=== PATIENT | male | born 1955 | race Caucasian/White ===

== ENCOUNTER 2018-09-30 18:46 | Inpatient (IN) | payer MEDICARE, MEDICAID ==
[~2018-09-30] VITALS: Ht 162.6 cm; Wt 60.6 kg
[2018-09-30] MEDS ORDERED: SOD CHLORIDE 0.9% 500 ML IV STA (20:38)
[2018-09-30] MEDS ORDERED: ONDANSETRON 4 MG INJ IV PRN ×2 (21:00→23:00)
[2018-09-30] MEDS ORDERED: ACETAMINOPHEN 325 MG TAB PO PRN (21:00)
--- NOTE | 2018-09-30 22:46 | ERD ---
ER Documentation Chief Complaint Chief Complaint diagnosed w/CHF in [place] & then was referred here x further eval(cap?) HPI 63-year-old male who was just discharged from a 2-day hospital stay at [place]. He states that he was diagnosed with pneumonia and possible CHF. The patient has been receiving levofloxacin and received a dose today around noon. He states that he was discharged and told to come to the emergency room. Patient still describes cough, generalized malaise, weight loss. No hemoptysis. No chest pressure. ROS All systems reviewed and are negative except as per history of present illness. Medications Home Meds No Active Prescriptions or Reported Meds Allergies Allergies: Coded Allergies: No Known Allergy (Unverified , 09/30/18) PMhx/Soc Medical and Surgical Hx: pt denies Surgical Hx History of Surgery: No Anesthesia Reaction: No Hx Neurological Disorder: No Hx Cardiac Disorders: Yes (CHF) Hx Psychiatric Problems: No Hx Miscellaneous Medical Probl: No Hx Alcohol Use: No Hx Substance Use: No Hx Tobacco Use: No Smoking Status: Never smoker FmHx Family History: No diabetes Physical Exam Vitals Vital Signs Date Temp Pulse Resp B/P (MAP) Pulse Ox O2 O2 Flow FiO2 Time Delivery Rate 09/30/18 98.6 98 20 148/95 97 18:52 (112) Physical Exam General: Cachectic male, no distress Head: Normocephalic, atraumatic. Eyes: Pupils equally reactive, EOM intact ENT: Moist mucous membranes Neck: Supple, no lymphadenopathy Respiratory: Rhonchi at the bases bilaterally Cardiovascular: RRR, no murmurs, rubs, or gallops Abdominal: Soft, non-tender, non-distended, no peritoneal signs : Deferred MSK: No edema, no unilateral swelling, 5/5 strength Neurologic: Alert and oriented, moving all extremities, normal speech, no focal weakness, no cerebellar signs Skin: No rash Psych: Normal mood Result Diagram: 09/30/18192209/30/181922 Results 24 hrs Laboratory Tests Test 09/30/18 19:23 09/30/18 19:30 White Blood Count 13.5 10^3/ul Red Blood Count 4.94 10^6/ul Hemoglobin 9.8 g/dl Hematocrit 32.4 % Mean Corpuscular Volume 65.6 fl Mean Corpuscular Hemoglobin 19.8 pg Mean Corpuscular Hemoglobin Concent 30.2 g/dl Red Cell Distribution Width 22.0 % Platelet Count 554 10^3/UL Mean Platelet Volume 10.2 fl Immature Granulocytes % 3.200 % Neutrophils % 84.8 % Lymphocytes % 7.0 % Monocytes % 4.8 % Eosinophils % 0.1 % Basophils % 0.1 % Nucleated Red Blood Cells % 0.0 /100WBC Immature Granulocytes # 0.430 10^3/ul Neutrophils # 11.4 10^3/ul Lymphocytes # 1.0 10^3/ul Monocytes # 0.7 10^3/ul Eosinophils # 0.0 10^3/ul Basophils # 0.0 10^3/ul Nucleated Red Blood Cells # 0.0 10^3/ul Prothrombin Time 13.8 Sec Prothrombin Time Ratio 1.1 INR International Normalized Ratio 1.05 Activated Partial Thromboplast Time 33.1 Sec Sodium Level 136 mmol/L Potassium Level 3.9 mmol/L Chloride Level 100 mmol/L Carbon Dioxide Level 25 mmol/L Anion Gap 11 Blood Urea Nitrogen 21 mg/dl Creatinine 0.76 mg/dl Est Glomerular Filtrat Rate mL/min > 60 mL/min Glucose Level 149 mg/dl Calcium Level 8.9 mg/dl Troponin I < 0.012 ng/ml B-Type Natriuretic Peptide 838 PG/ML POC Venous Lactate 2.2 mmol/L Current Medications Medications Dose Sig/Mara Start Time Status Last (Trade) Ordered Route PRN Stop Time Admin Dose Reason Admin Sodium 500 ml @ Q1H STAT 09/30/18 DC 09/30/18 Chloride 500 mls/hr IV 20:38 21:14 09/30/18 21:37 Procedures/MDM EKG, MONITORS, & DIAGNOSTIC IMAGING: EKG: I reviewed and interpreted a 12-lead EKG. Rhythm: Normal sinus rhythm ST Changes: No contiguous ST segment elevations T waves: T wave inversions in the lateral leads Impression: Abnormal EKG CXR IMPRESSION: 1. Cardiomegaly with mild interstitial vascular congestion and small left pleural effusion. 2. Superimposed on this is more patchy density in the left lower lobe likely representing concomitant pneumonia RPTAT: LAB INTERPRETATION: I reviewed the laboratory testing and it shows white blood cell count elevation of 13.5 with left shift lactic acid elevation 2.2 trending down to 1.8, BNP elevation MEDICAL DECISION MAKING: The patient was just recently discharged from the hospital and told to come to the emergency room. This is than concerning for poor and inappropriate discharge. The patient states that he still having symptoms concerning for pneumonia. The patient was also told that he has concomitant CHF. The patient will benefit from laboratory testing and inpatient hospitalization for further management. ER COURSE: * Blood cultures were taken. The patient received his dose of Levaquin at noon today. No indication for repeat dosing at this time. * Lactic acid is slightly elevated 2.2 but trended down without significant intervention. * The patient has concomitant mild volume overload and does not warrant a full aggressive 30 cc/kg bolus of saline. The patient's initial heart rate was 98 his repeat was 60 without much intervention. I do not believe the patient qualifies for Sirs criteria in the emergency room setting and I am not convinced this is consistent with sepsis. * For this reason I do not believe the patient warrants aggressive fluid resuscitation. Again the patient received antibiotics earlier today. He is resting comfortably. Patient will be admitted for further management. CONSULTATION: [None] DISPOSITION PLAN: Accepting care team and consultations: I discussed the current laboratory data, diagnostic imaging and emergency care provided. Admitting team:Dr Aleman Admitting team indication: Insurance directed Departure Diagnosis: Primary Impression: Community acquired pneumonia Laterality: unspecified laterality Qualified Codes: J18.9 - Pneumonia, unspecified organism Additional Impressions: Congestive heart failure Heart failure type: unspecified Heart failure chronicity: unspecified Qualified Codes: I50.9 - Heart failure, unspecified Lactic acidosis Condition: Stable JUAN MAO MD Sep 30, 2018 22:46
[2018-09-30 22:53] VITALS: BP 143/92; PULSE 68; RESP 16
[2018-09-30 23:00] VITALS: Ht 162.6 cm; Wt 60.6 kg
[2018-09-30] MEDS ORDERED: NACL 0.9% 3 ML SYG IV SCH (23:00)
[2018-09-30] MEDS ORDERED: morphine 2 MG INJ IV PRN (23:00)
--- NOTE | 2018-10-01 01:31 | HP ---
Date/Time of Note Date/Time of Note DATE: 10/01/18 TIME: 01:30 Assessment/Plan VTE Prophylaxis Pharmacological prophylaxis: other Lines/Catheters IV [facility]ter Type (from [facility] Saline Lock Urinary Cath still in place: No Assessment/Plan Hospital Course Objective Physical exam General: Patient is laying in bed and answers questions appropriately Mentation: Patient is alert and oriented 4, Head: Normocephalic atraumatic Eyes: EOMI, pupils reactive to light Neck: Supple, nontender, midline Respiratory: Mild coarseness to auscultation bilaterally Cardiovascular: regular rate, no obvious murmurs Gastrointestinal: non-tender to palpation, bowel sounds heard. Neurological: Moves all extremities spontaneously Skin: No new skin lesions Assessment and plan Pneumonia, left-sided -IV antibiotic -DuoNeb as needed -Resolving, patient on room air CHF -Questionable diagnosis, echocardiogram pending Lactic acidosis -Momentary, quickly resolved Cough -Secondary to above pneumonia, as needed medication Disposition -Unsure of the story and patient is not the best historian, day team physician will need to talk to sister to figure out why they went straight from [place] to here. Result Diagram: 09/30/18192209/30/181922 Results 24hrs Laboratory Tests Test 09/30/18 19:23 09/30/18 19:30 09/30/18 21:34 09/30/18 23:39 White Blood Count 13.5 H Red Blood Count 4.94 Hemoglobin 9.8 L Hematocrit 32.4 L Mean Corpuscular 65.6 L Volume Mean Corpuscular 19.8 L Hemoglobin Mean Corpuscular 30.2 L Hemoglobin Concent Red Cell 22.0 H Distribution Width Platelet Count 554 H Mean Platelet Volume 10.2 Immature 3.200 H Granulocytes % Neutrophils % 84.8 H Lymphocytes % 7.0 L Monocytes % 4.8 Eosinophils % 0.1 Basophils % 0.1 Nucleated Red Blood 0.0 Cells % Immature 0.430 H Granulocytes # Neutrophils # 11.4 H Lymphocytes # 1.0 Monocytes # 0.7 Eosinophils # 0.0 Basophils # 0.0 Nucleated Red Blood 0.0 Cells # Prothrombin Time 13.8 Prothrombin Time 1.1 Ratio INR International 1.05 Normalized Ratio Activated 33.1 Partial Thromboplast Time Sodium Level 136 Potassium Level 3.9 Chloride Level 100 Carbon Dioxide Level 25 Anion Gap 11 Blood Urea Nitrogen 21 H Creatinine 0.76 Est Glomerular > 60 Filtrat Rate mL/min Glucose Level 149 Calcium Level 8.9 Troponin I < 0.012 B-Type Natriuretic 838 H Peptide POC Venous Lactate 2.2 *H 1.8 Lactic Acid Level 1.4 HPI/ROS Admit Date/Time Admit Date/Time Sep 30, 2018 at 20:40 Hx of Present Illness Patient is a male with a past medical history significant for recent hospitalization at [facility] for pneumonia and CHF. The story is quite strange however and the patient cannot further elaborate. According to ED and patient, patient was discharged this afternoon and as soon as discharged, patient's sister brought him to [facility] ED. Patient's lactic acid was elevated and ED chose to admit the patient. Currently patient has 0 complaints, says cough is minimal, breathing fine on room air, no complaints. Patient also has no other past medical history. Patient denies chest pain, shortness of breath, nausea, vomiting, abdominal pain, leg pain PMH/Family/Social Past Medical History Medications Current Medications Ondansetron HCl (Zofran Inj) 4 mg BRIDGE ORDER PRN IV NAUSEA/VOMITING; Start 09/30/18 at 21:00; Stop 10/01/18 at 20:59 Acetaminophen (Tylenol Tab) 650 mg ER BRIDGE PRN PO .MILD PAIN 1-3 OR TEMP; Start 09/30/18 at 21:00; Stop 10/01/18 at 20:59 IV Flush (NS 3 ml) 3 ml PER PROTOCOL IV ; Start 09/30/18 at 23:00 Ondansetron HCl (Zofran Inj) 4 mg Q6H PRN IV NAUSEA/VOMITING; Start 09/30/18 at 23:00 Acetaminophen (Tylenol Tab) 650 mg Q6H PRN PO .PAIN 1-3 OR TEMP; Start 09/30/18 at 23:00 Acetaminophen/ Hydrocodone Bitart ([place] (5/325)) 1 tab Q6H PRN PO .PAIN 4-6; Start 09/30/18 at 23:00 Morphine Sulfate (morphine) 2 mg Q4H PRN IV .PAIN 7-10; Start 09/30/18 at 23:00 Piperacillin Sod/ Tazobactam Sod 100 ml @ 200 mls/hr Q6 IVPB ; Start 10/01/18 at 01:30 Guaifenesin/ Codeine Phosphate (Robitussin Ac Liquid Cup) 5 ml Q4H PRN PO cough; Start 10/01/18 at 01:30 Albuterol/ Ipratropium (Duoneb) 3 ml Q2H RESP THERAPY PRN HHN shortness of breath; Start 10/01/18 at 01:30 Coded Allergies: No Known Allergy (Unverified , 09/30/18) Social History Smoking Status: Former smoker Exam/Review of Systems Vital Signs Vitals Vital Signs Date Temp Pulse Resp B/P (MAP) Pulse Ox O2 O2 Flow FiO2 Time Delivery Rate 09/30/18 97.9 68 16 143/92 96 22:53 (109) 09/30/18 Room Air 21:37 RAMAN PRADO Oct 01, 2018 01:31
[2018-10-01 01:53] VITALS: BP 122/83; PULSE 65; RESP 18
[2018-10-01] MEDS: PIPER-TAZO 3.375 GM IV (PMX) 100 ML IVPB SCH ×5 (02:29→23:43)
[2018-10-01 07:23] VITALS: BP 122/84; PULSE 93; RESP 20
[2018-10-01] MEDS ORDERED: ALBUTEROL/IPRATROPIUM (NEB) 3 ML AMP HHN SCH (08:00)
[2018-10-01] MEDS: ACETAMINOPHEN 325 MG TAB PO PRN ×2 (08:12→18:01)
[2018-10-01] MEDS: ALBUTEROL/IPRATROPIUM (NEB) 3 ML AMP HHN PRN ×2 (08:53→18:03)
[2018-10-01] MEDS ORDERED: POTASSIUM CHLORIDE (SR) 20 MEQ TAB PO STA (10:09)
--- NOTE | 2018-10-01 10:27 | PN ---
Date/Time of Note Date/Time of Note DATE: 10/01/18 TIME: 10:24 Assessment/Plan VTE Prophylaxis SCD contraindicated: low risk/ambulating Pharmacological prophylaxis: heparin Lines/Catheters IV Catheter Type (from Nrs): Saline Lock Urinary Cath still in place: No Assessment/Plan Problems: (1) Community acquired pneumonia Status: Acute Comment: Is a left-sided pneumonia on chest x-ray but also appears to be in some degree of heart failure. Continue with the antibiotic therapy and try and gather more information. Qualifiers: Laterality: unspecified laterality Qualified Codes: J18.9 - Pneumonia, unspecified organism (2) Cardiomegaly Status: Acute Comment: This is clear on physical exam and I actually believe this gentleman has systolic dysfunction. Initiate treatment for this while pending echocardiogram. (3) Congestive heart failure Status: Acute Comment: 1 dosage of Lasix orally while I gather the rest of the data Qualifiers: Heart failure type: unspecified Heart failure chronicity: unspecified Qualified Codes: I50.9 - Heart failure, unspecified (4) Abnormal liver enzymes Status: Acute Comment: Check hepatitis serologies Result Diagram: 10/01/18 0558 10/01/18 0558 Results 24hrs Laboratory Tests Test 09/30/18 19:23 09/30/18 19:30 09/30/18 21:34 09/30/18 23:39 White Blood Count 13.5 H Red Blood Count 4.94 Hemoglobin 9.8 L Hematocrit 32.4 L Mean Corpuscular 65.6 L Volume Mean Corpuscular 19.8 L Hemoglobin Mean Corpuscular 30.2 L Hemoglobin Concent Red Cell 22.0 H Distribution Width Platelet Count 554 H Mean Platelet Volume 10.2 Immature 3.200 H Granulocytes % Neutrophils % 84.8 H Lymphocytes % 7.0 L Monocytes % 4.8 Eosinophils % 0.1 Basophils % 0.1 Nucleated Red Blood 0.0 Cells % Immature 0.430 H Granulocytes # Neutrophils # 11.4 H Lymphocytes # 1.0 Monocytes # 0.7 Eosinophils # 0.0 Basophils # 0.0 Nucleated Red Blood 0.0 Cells # Prothrombin Time 13.8 Prothrombin Time 1.1 Ratio INR International 1.05 Normalized Ratio Activated 33.1 Partial Thromboplast Time Sodium Level 136 Potassium Level 3.9 Chloride Level 100 Carbon Dioxide Level 25 Anion Gap 11 Blood Urea Nitrogen 21 H Creatinine 0.76 Est Glomerular > 60 Filtrat Rate mL/min Glucose Level 149 Calcium Level 8.9 Troponin I < 0.012 B-Type Natriuretic 838 H Peptide POC Venous Lactate 2.2 *H 1.8 Lactic Acid Level 1.4 Test 10/01/18 05:58 White Blood Count 14.0 H Red Blood Count 4.74 Hemoglobin 9.5 L Hematocrit 31.5 L Mean Corpuscular 66.5 L Volume Mean Corpuscular 20.0 L Hemoglobin Mean Corpuscular 30.2 L Hemoglobin Concent Red Cell 22.2 H Distribution Width Platelet Count 501 H Mean Platelet Volume 10.6 H Immature 1.800 H Granulocytes % Neutrophils % 79.8 H Lymphocytes % 10.8 L Monocytes % 6.2 Eosinophils % 1.3 Basophils % 0.1 Nucleated Red Blood 0.0 Cells % Immature 0.250 H Granulocytes # Neutrophils # 11.2 H Lymphocytes # 1.5 Monocytes # 0.9 Eosinophils # 0.2 Basophils # 0.0 Nucleated Red Blood 0.0 Cells # Sodium Level 138 Potassium Level 3.6 Chloride Level 104 Carbon Dioxide Level 26 Anion Gap 8 Blood Urea Nitrogen 21 H Creatinine 0.67 Est Glomerular > 60 Filtrat Rate mL/min Glucose Level 93 # Calcium Level 8.8 Magnesium Level 2.3 Total Bilirubin 0.3 Direct Bilirubin 0.00 Indirect Bilirubin 0.3 Aspartate Amino 68 H Transf (AST/SGOT) Alanine 110 H Aminotransferase (AL T/SGPT) Alkaline Phosphatase 178 H Total Protein 7.0 Albumin 2.9 L Globulin 4.10 H Albumin/Globulin 0.70 Ratio Subjective 24 Hr Interval Summary Free Text/Dictation 63-year-old [place] male who previously been in generally good health. He was admitted to [facility] and there he was treated. He was discharged with home health from their facility but his sister who took him was told that after he had been home to then bring him to the emergency room for further evaluation because their equipment was incomplete. Was not feeling better so she drove him directly to our emergency room from their parking lot Constitutional: no complaints Respiratory: cough, shortness of breath Cardiovascular: orthopenea Gastrointestinal: no complaints Genitourinary: no complaints Musculoskeletal: no complaints Exam/Review of Systems Exam Vitals Vital Signs Date Temp Pulse Resp B/P (MAP) Pulse Ox O2 O2 Flow FiO2 Time Delivery Rate 10/01/18 97 20 99 21 08:54 10/01/18 98.4 122/84 07:23 (97) 09/30/18 Room Air 21:37 Intake and Output 09/30/18 09/30/18 10/01/18 1515:00 23:00 07:00 IntakeIntake Total 340 ml BalanceBalance 340 ml Constitutional: alert, oriented Respiratory: crackles/rales (Basilar crackles, left sided egophony) Cardiovascular: regular rate and rhythm, nl pulses Gastrointestinal: soft, nl liver, spleen, non-tender Results Results 24hrs Laboratory Tests Test 09/30/18 19:23 09/30/18 19:30 09/30/18 21:34 09/30/18 23:39 White Blood Count 13.5 H Red Blood Count 4.94 Hemoglobin 9.8 L Hematocrit 32.4 L Mean Corpuscular 65.6 L Volume Mean Corpuscular 19.8 L Hemoglobin Mean Corpuscular 30.2 L Hemoglobin Concent Red Cell 22.0 H Distribution Width Platelet Count 554 H Mean Platelet Volume 10.2 Immature 3.200 H Granulocytes % Neutrophils % 84.8 H Lymphocytes % 7.0 L Monocytes % 4.8 Eosinophils % 0.1 Basophils % 0.1 Nucleated Red Blood 0.0 Cells % Immature 0.430 H Granulocytes # Neutrophils # 11.4 H Lymphocytes # 1.0 Monocytes # 0.7 Eosinophils # 0.0 Basophils # 0.0 Nucleated Red Blood 0.0 Cells # Prothrombin Time 13.8 Prothrombin Time 1.1 Ratio INR International 1.05 Normalized Ratio Activated 33.1 Partial Thromboplast Time Sodium Level 136 Potassium Level 3.9 Chloride Level 100 Carbon Dioxide Level 25 Anion Gap 11 Blood Urea Nitrogen 21 H Creatinine 0.76 Est Glomerular > 60 Filtrat Rate mL/min Glucose Level 149 Calcium Level 8.9 Troponin I < 0.012 B-Type Natriuretic 838 H Peptide POC Venous Lactate 2.2 *H 1.8 Lactic Acid Level 1.4 Test 10/01/18 05:58 White Blood Count 14.0 H Red Blood Count 4.74 Hemoglobin 9.5 L Hematocrit 31.5 L Mean Corpuscular 66.5 L Volume Mean Corpuscular 20.0 L Hemoglobin Mean Corpuscular 30.2 L Hemoglobin Concent Red Cell 22.2 H Distribution Width Platelet Count 501 H Mean Platelet Volume 10.6 H Immature 1.800 H Granulocytes % Neutrophils % 79.8 H Lymphocytes % 10.8 L Monocytes % 6.2 Eosinophils % 1.3 Basophils % 0.1 Nucleated Red Blood 0.0 Cells % Immature 0.250 H Granulocytes # Neutrophils # 11.2 H Lymphocytes # 1.5 Monocytes # 0.9 Eosinophils # 0.2 Basophils # 0.0 Nucleated Red Blood 0.0 Cells # Sodium Level 138 Potassium Level 3.6 Chloride Level 104 Carbon Dioxide Level 26 Anion Gap 8 Blood Urea Nitrogen 21 H Creatinine 0.67 Est Glomerular > 60 Filtrat Rate mL/min Glucose Level 93 # Calcium Level 8.8 Magnesium Level 2.3 Total Bilirubin 0.3 Direct Bilirubin 0.00 Indirect Bilirubin 0.3 Aspartate Amino 68 H Transf (AST/SGOT) Alanine 110 H Aminotransferase (AL T/SGPT) Alkaline Phosphatase 178 H Total Protein 7.0 Albumin 2.9 L Globulin 4.10 H Albumin/Globulin 0.70 Ratio Medications Medication Current Medications Ondansetron HCl (Zofran Inj) 4 mg BRIDGE ORDER PRN IV NAUSEA/VOMITING; Start 09/30/18 at 21:00; Stop 10/01/18 at 20:59 Acetaminophen (Tylenol Tab) 650 mg ER BRIDGE PRN PO .MILD PAIN 1-3 OR TEMP; Start 09/30/18 at 21:00; Stop 10/01/18 at 20:59 IV Flush (NS 3 ml) 3 ml PER PROTOCOL IV ; Start 09/30/18 at 23:00 Ondansetron HCl (Zofran Inj) 4 mg Q6H PRN IV NAUSEA/VOMITING; Start 09/30/18 at 23:00 Acetaminophen (Tylenol Tab) 650 mg Q6H PRN PO .PAIN 1-3 OR TEMP Last administered on 10/01/18at 08:12; Admin Dose 650 MG; Start 09/30/18 at 23:00 Acetaminophen/ Hydrocodone Bitart ([place] (5/325)) 1 tab Q6H PRN PO .PAIN 4-6; Start 09/30/18 at 23:00 Morphine Sulfate (morphine) 2 mg Q4H PRN IV .PAIN 7-10; Start 09/30/18 at 23:00 Piperacillin Sod/ Tazobactam Sod 100 ml @ 200 mls/hr Q6 IVPB Last administered on 10/01/18at 06:57; Admin Dose 200 MLS/HR; Start 10/01/18 at 01:30 Guaifenesin/ Codeine Phosphate (Robitussin Ac Liquid Cup) 5 ml Q4H PRN PO cough; Start 10/01/18 at 01:30 Albuterol/ Ipratropium (Duoneb) 3 ml Q2H RESP THERAPY PRN HHN shortness of breath Last administered on 10/01/18at 08:53; Admin Dose 3 ML; Start 10/01/18 at 01:30 STEVE AVILA MD Oct 01, 2018 10:27
[2018-10-01] MEDS ORDERED: FUROSEMIDE 20 MG TAB PO ONE (10:30)
[2018-10-01] MEDS: METOPROLOL (XL) 25 MG TAB PO SCH ×2 (13:41→20:09)
[2018-10-01 13:42] VITALS: BP 127/86; PULSE 103; RESP 18
[2018-10-01] MEDS: LISINOPRIL 5 MG TAB PO SCH ×2 (13:42→20:10)
[2018-10-01 19:35] VITALS: BP 106/68; PULSE 104; RESP 18
[2018-10-02 01:57] VITALS: BP 101/67; PULSE 96; RESP 16
[2018-10-02] MEDS: PIPER-TAZO 3.375 GM IV (PMX) 100 ML IVPB SCH ×4 (06:06→23:54)
[2018-10-02 07:52] VITALS: BP 100/67; PULSE 110; RESP 16
[2018-10-02] MEDS: LISINOPRIL 5 MG TAB PO SCH ×2 (09:29→21:00)
[2018-10-02] MEDS: ACETAMINOPHEN 325 MG TAB PO PRN ×2 (09:29→18:01)
[2018-10-02] MEDS: METOPROLOL (XL) 25 MG TAB PO SCH ×2 (09:29→21:46)
--- NOTE | 2018-10-02 09:54 | PN ---
Date/Time of Note Date/Time of Note DATE: 10/02/18 TIME: 09:50 Assessment/Plan VTE Prophylaxis Risk score (from [facility])>0 risk: 5 SCD applied (from [facility] [place]): Yes Pharmacological prophylaxis: heparin Lines/Catheters IV Catheter Type (from [facility]): Saline Lock Urinary Cath still in place: No Assessment/Plan Problems: (1) Community acquired pneumonia Status: Acute Comment: Improving. Please note that there is some function here of volume overload as well. Should be able to be discharged in the next 24-48 hours Qualifiers: Laterality: unspecified laterality Qualified Codes: J18.9 - Pneumonia, un specified organism (2) Cardiomegaly Status: Acute Comment: Pending at this time is the echocardiogram. I believe this patient does have heart failure although I could be proven wrong (3) Congestive heart failure Status: Acute Comment: For now adjust medications especially given the tachycardia to increase beta-blockade in a slow stepwise fashion given the patient's low in blo od pressure. Qualifiers: Heart failure type: unspecified Heart failure chronicity: unspecified Qualified Codes: I50.9 - Heart failure, unspecified (4) Abnormal liver enzymes Status: Acute Comment: Good and negative hepatitis serologies (5) Anemia Status: Chronic Comment: Initial evaluation Result Diagram: 10/02/18 0549 10/02/18 0549 Results 24hrs Laboratory Tests Test 10/02/18 05:49 White Blood Count 13.3 H Red Blood Count 5.47 Hemoglobin 10.8 L Hematocrit 35.5 L Mean Corpuscular Volume 64.9 L Mean Corpuscular Hemoglobin 19.7 L Mean Corpuscular Hemoglobin Concent 30.4 L Red Cell Distribution Width 23.0 H Platelet Count 569 H Mean Platelet Volume 10.2 Immature Granulocytes % 3.200 H Neutrophils % 79.3 H Lymphocytes % 8.5 L Monocytes % 6.0 Eosinophils % 2.8 Basophils % 0.2 Nucleated Red Blood Cells % 0.0 Immature Granulocytes # 0.430 H Neutrophils # 10.5 H Lymphocytes # 1.1 Monocytes # 0.8 Eosinophils # 0.4 Basophils # 0.0 Nucleated Red Blood Cells # 0.0 Sodium Level 135 Potassium Level 3.9 Chloride Level 97 Carbon Dioxide Level 29 Anion Gap 9 Blood Urea Nitrogen 15 Creatinine 0.64 Est Glomerular Filtrat Rate mL/min > 60 Glucose Level 94 Calcium Level 9.0 Thyroid Stimulating Hormone (TSH) 1.710 Subjective 24 Hr Interval Summary Free Text/Dictation She reports he is feeling a little bit better. His family brought the discharge papers from [facility]. Constitutional: no complaints (Eyes fevers chills or sweats) Respiratory: shortness of breath Cardiovascular: chest pain (Pleuritic left-sided chest pain) Gastrointestinal: no complaints Genitourinary: no complaints Exam/Review of Systems Exam Vitals Vital Signs Date Temp Pulse Resp B/P (MAP) Pulse Ox O2 O2 Flow FiO2 Time Delivery Rate 10/02/18 98.5 110 16 100/67 96 07:52 (78) 10/01/18 21 18:03 10/01/18 Room Air 13:42 Intake and Output 10/01/18 10/01/18 10/02/18 1515:00 23:00 07:00 IntakeIntake Total 680 ml 700 ml 320 ml BalanceBalance 680 ml 700 ml 320 ml Results Results 24hrs Laboratory Tests Test 10/02/18 05:49 White Blood Count 13.3 H Red Blood Count 5.47 Hemoglobin 10.8 L Hematocrit 35.5 L Mean Corpuscular Volume 64.9 L Mean Corpuscular Hemoglobin 19.7 L Mean Corpuscular Hemoglobin Concent 30.4 L Red Cell Distribution Width 23.0 H Platelet Count 569 H Mean Platelet Volume 10.2 Immature Granulocytes % 3.200 H Neutrophils % 79.3 H Lymphocytes % 8.5 L Monocytes % 6.0 Eosinophils % 2.8 Basophils % 0.2 Nucleated Red Blood Cells % 0.0 Immature Granulocytes # 0.430 H Neutrophils # 10.5 H Lymphocytes # 1.1 Monocytes # 0.8 Eosinophils # 0.4 Basophils # 0.0 Nucleated Red Blood Cells # 0.0 Sodium Level 135 Potassium Level 3.9 Chloride Level 97 Carbon Dioxide Level 29 Anion Gap 9 Blood Urea Nitrogen 15 Creatinine 0.64 Est Glomerular Filtrat Rate mL/min > 60 Glucose Level 94 Calcium Level 9.0 Thyroid Stimulating Hormone (TSH) 1.710 Medications Medication Current Medications IV Flush (NS 3 ml) 3 ml PER PROTOCOL IV ; Start 09/30/18 at 23:00 Ondansetron HCl (Zofran Inj) 4 mg Q6H PRN IV NAUSEA/VOMITING; Start 09/30/18 at 23:00 Acetaminophen (Tylenol Tab) 650 mg Q6H PRN PO .PAIN 1-3 OR TEMP Last adminis tered on 10/02/18 09:29; Admin Dose 650 MG; Start 09/30/18 at 23:00 Acetaminophen/ Hydrocodone Bitart ([place] (5/325)) 1 tab Q6H PRN PO .PAIN 4-6; Start 09/30/18 at 23:00 Morphine Sulfate (morphine) 2 mg Q4H PRN IV .PAIN 7-10; Start 09/30/18 at 23:00 Piperacillin Sod/ Tazobactam Sod 100 ml @ 200 mls/hr Q6 IVPB Last administered on 10/02/18at 06:06; Admin Dose 200 MLS/HR; Start 10/01/18 at 01:30 Guaifenesin/ Codeine Phosphate (Robitussin Ac Liquid Cup) 5 ml Q4H PRN PO cough; Start 10/01/18 at 01:30 Albuterol/ Ipratropium (Duoneb) 3 ml Q2H RESP THERAPY PRN HHN shortness of breath Last administered on 10/01/18at 18:03; Admin Dose 3 ML; Start 10/01/18 at 01:30 Metoprolol Succinate (Toprol Xl) 12.5 mg BID PO Last administered on 10/02/18 09:29; Admin Dose 12.5 MG; Start 10/01/18 at 10:30 Lisinopril (Zestril) 2.5 mg BID PO Last administered on 10/02/18 09:29; Admin Dose 2.5 MG; Start 10/01/18 at 10:30 STEVE AVILA MD Oct 02, 2018 09:54
[2018-10-02] MEDS ORDERED: METOPROLOL (XL) 25 MG TAB PO ONE (10:00)
[2018-10-02] MEDS ORDERED: FUROSEMIDE 20 MG TAB PO ONE (10:00)
[2018-10-02 14:02] VITALS: BP 106/54; PULSE 100; RESP 16
[2018-10-02] MEDS: ALBUTEROL/IPRATROPIUM (NEB) 3 ML AMP HHN PRN (19:15)
[2018-10-02 20:00] VITALS: BP 97/66; PULSE 110; RESP 18
[2018-10-03] VITALS (8 sets, daily range): BP systolic 80–112; BP diastolic 55–72; PULSE 94–119; RESP 16–22
[2018-10-03] MEDS: ACETAMINOPHEN 325 MG TAB PO PRN (02:13)
[2018-10-03] MEDS: PIPER-TAZO 3.375 GM IV (PMX) 100 ML IVPB SCH ×2 (05:36→12:41)
[2018-10-03] MEDS: LISINOPRIL 5 MG TAB PO SCH (08:51)
[2018-10-03] MEDS: METOPROLOL (XL) 25 MG TAB PO SCH ×2 (09:00→21:00)
[2018-10-03] MEDS: HYDROCODONE/APAP (5/325) TAB PO PRN ×2 (13:09→19:46)
[2018-10-03] MEDS: ALBUTEROL/IPRATROPIUM (NEB) 3 ML AMP HHN PRN (14:06)
--- NOTE | 2018-10-03 15:07 | PN ---
Date/Time of Note Date/Time of Note DATE: 10/03/18 TIME: 14:52 Assessment/Plan VTE Prophylaxis Risk score (from Ns)>0 risk: 3 SCD applied (from Ns): Yes Pharmacological prophylaxis: LMWH Lines/Catheters IV [facility] (from [facility] Saline Lock Urinary Cath still in place: No Assessment/Plan Assessment/Plan 1. Community acquired pneumonia, change zosyn to rocephin and zithromax 2. Microcytic anemia, iron deficiency, iron supplement, outpatient work up(endoscopy) 2. R/o CHF, echo report is pending Result Diagram: 10/03/18 0451 10/03/18 0451 Results 24hrs Laboratory Tests Test 10/03/18 04:51 White Blood Count 12.7 H Red Blood Count 5.22 Hemoglobin 10.5 L Hematocrit 34.8 L Mean Corpuscular Volume 66.7 L Mean Corpuscular Hemoglobin 20.1 L Mean Corpuscular Hemoglobin Concent 30.2 L Red Cell Distribution Width 22.6 H Platelet Count 494 H Mean Platelet Volume Immature Granulocytes % 4.600 H Neutrophils % 74.2 Lymphocytes % 8.7 L Monocytes % 7.2 Eosinophils % 4.9 Basophils % 0.4 Nucleated Red Blood Cells % 0.0 Immature Granulocytes # 0.580 H Neutrophils # 9.4 H Lymphocytes # 1.1 Monocytes # 0.9 Eosinophils # 0.6 H Basophils # 0.1 Nucleated Red Blood Cells # 0.0 Sodium Level 137 Potassium Level 4.6 Chloride Level 96 L Carbon Dioxide Level 30 Anion Gap 11 Blood Urea Nitrogen 17 Creatinine 0.82 Est Glomerular Filtrat Rate mL/min > 60 Glucose Level 118 Calcium Level 8.7 Iron Level 22 L Total Iron Binding Capacity 253 Percent Iron Saturation 9 L Ferritin 420.0 H Total Bilirubin 0.7 Direct Bilirubin 0.00 Indirect Bilirubin 0.7 Aspartate Amino Transf (AST/SGOT) 32 # Alanine Aminotransferase (ALT/SGPT) 68 Alkaline Phosphatase 164 H Total Protein 7.5 Albumin 3.2 L Globulin 4.30 H Albumin/Globulin Ratio 0.74 Subjective 24 Hr Interval Summary Free Text/Dictation shortness of breath, cough with white sputum, fever Exam/Review of Systems Exam Vitals Vital Signs Date Temp Pulse Resp B/P (MAP) Pulse Ox O2 O2 Flow FiO2 Time Delivery Rate 10/03/18 100.5 119 16 92/57 (69) 94 14:20 10/03/18 21 14:07 10/03/18 Room Air 13:41 Intake and Output 10/02/18 10/02/18 10/03/18 1515:00 23:00 07:00 IntakeIntake Total 1020 ml 560 ml 200 ml OutputOutput Total 300 ml BalanceBalance 1020 ml 560 ml -100 ml Constitutional: alert, oriented, well developed Psych: no complaints, nl mood/affect Head: normocephalic, atraumatic Eyes: nl conjunctiva, EOMI, nl lids ENMT: nl external ears & nose, nl lips & teeth, nl nasal mucosa & septum Neck: supple, non-tender Respiratory: clear to auscultation, normal air movement; No congested cough, No crackles/rales, No diminished breath sounds, No intercostal retraction, No labored breathing, No respirations, No tactile fremitus, No wheezing, No other Cardiovascular: regular rate and rhythm, nl pulses; No bruits, No diastolic murmur, No edema, No gallop, No irregular rhythm, No jugular venous distention (JVD), No murmurs/extra sounds, No rub, No systolic murmur, No S3, No S4, No other Gastrointestinal: soft, nl liver, spleen, non-tender Musculoskeletal: nl extremities to inspection Extremities: normal pulses; No calf tenderness, No cyanosis, No clubbing, No edema, No pitting pedal edema, No palpable cord, No tenderness, No other Neurological: TEST DECK SUPERVISOR II-XII intact, nl mental status, nl speech, nl strength Skin: nl turgor, rash or lesions Results Results 24hrs Laboratory Tests Test 10/03/18 04:51 White Blood Count 12.7 H Red Blood Count 5.22 Hemoglobin 10.5 L Hematocrit 34.8 L Mean Corpuscular Volume 66.7 L Mean Corpuscular Hemoglobin 20.1 L Mean Corpuscular Hemoglobin Concent 30.2 L Red Cell Distribution Width 22.6 H Platelet Count 494 H Mean Platelet Volume Immature Granulocytes % 4.600 H Neutrophils % 74.2 Lymphocytes % 8.7 L Monocytes % 7.2 Eosinophils % 4.9 Basophils % 0.4 Nucleated Red Blood Cells % 0.0 Immature Granulocytes # 0.580 H Neutrophils # 9.4 H Lymphocytes # 1.1 Monocytes # 0.9 Eosinophils # 0.6 H Basophils # 0.1 Nucleated Red Blood Cells # 0.0 Sodium Level 137 Potassium Level 4.6 Chloride Level 96 L Carbon Dioxide Level 30 Anion Gap 11 Blood Urea Nitrogen 17 Creatinine 0.82 Est Glomerular Filtrat Rate mL/min > 60 Glucose Level 118 Calcium Level 8.7 Iron Level 22 L Total Iron Binding Capacity 253 Percent Iron Saturation 9 L Ferritin 420.0 H Total Bilirubin 0.7 Direct Bilirubin 0.00 Indirect Bilirubin 0.7 Aspartate Amino Transf (AST/SGOT) 32 # Alanine Aminotransferase (ALT/SGPT) 68 Alkaline Phosphatase 164 H Total Protein 7.5 Albumin 3.2 L Globulin 4.30 H Albumin/Globulin Ratio 0.74 Medications Medication Current Medications IV Flush (NS 3 ml) 3 ml PER PROTOCOL IV ; Start 09/30/18 at 23:00 Ondansetron HCl (Zofran Inj) 4 mg Q6H PRN IV NAUSEA/VOMITING; Start 09/30/18 at 23:00 Acetaminophen (Tylenol Tab) 650 mg Q6H PRN PO .PAIN 1-3 OR TEMP Last administered on 10/03/18at 02:13; Admin Dose 650 MG; Start 09/30/18 at 23:00 Acetaminophen/ Hydrocodone Bitart ([place] (5/325)) 1 tab Q6H PRN PO .PAIN 4-6 Last administered on 10/03/18at 13:09; Admin Dose 1 TAB; Start 09/30/18 at 23:00 Morphine Sulfate (morphine) 2 mg Q4H PRN IV .PAIN 7-10; Start 09/30/18 at 23:00 Piperacillin Sod/ Tazobactam Sod 100 ml @ 200 mls/hr Q6 IVPB Last administered on 10/03/18at 12:41; Admin Dose 200 MLS/HR; Start 10/01/18 at 01:30 Guaifenesin/ Codeine Phosphate (Robitussin Ac Liquid Cup) 5 ml Q4H PRN PO cough; Start 10/01/18 at 01:30 Albuterol/ Ipratropium (Duoneb) 3 ml Q2H RESP THERAPY PRN HHN shortness of breath Last administered on 10/03/18at 14:06; Admin Dose 3 ML; Start 10/01/18 at 01:30 Lisinopril (Zestril) 2.5 mg BID PO Last administered on 10/02/18at 09:29; Admin Dose 2.5 MG; Start 10/01/18 at 10:30 Metoprolol Succinate (Toprol Xl) 25 mg BID PO Last administered on 10/02/18at 21:46; Admin Dose 25 MG; Start 10/02/18 at 21:00 DEYSI RODRIGUES MD Oct 03, 2018 15:02
[2018-10-03] MEDS: CEFTRIAXONE 1 GM/50 ML (PMX) 50 ML IVPB SCH (15:48)
[2018-10-03] MEDS: AZITHROMYCIN 250 MG in SOD CHLORIDE 0.9% 250 ML IVPB SCH (16:30)
[2018-10-03] MEDS ORDERED: SOD CHLORIDE 0.9% 500 ML IV ONE ×2 (21:30→23:30)
[2018-10-04] MEDS: GUAIFENESIN/CODEINE 5ML CUP PO PRN ×2 (00:29→09:27)
[2018-10-04 01:31] VITALS: BP 119/81; PULSE 105; RESP 16
[2018-10-04] MEDS: HYDROCODONE/APAP (5/325) TAB PO PRN ×3 (03:10→18:17)
[2018-10-04 07:44] VITALS: BP 98/75; PULSE 104; RESP 17
--- NOTE | 2018-10-04 08:06 | RADRPT ---
Echocardiogram Report Patient Name: JACK MARIEPatient ID: [id number] : 1955 (63y 4m)Study Date: 10/02/2018 9:05:16 AM Gender: MAccession #: [id number] Tech: ALMA Location: Ref.Physician: RAMAN PRADO Height(Cm): 163 BSA: 1.65Weight(Kg): 60.3 Quality: AdequateAccount #: Procedures: Echocardiographic Report: Transthoracic echocardiogram with complete 2D, M-Mode, and doppler examination. Indications: Evaluate Left Ventricular function. Measurements: 2D/M Mode Doppler Measurement Value Normal Range Measurement Value Normal Range LVIDd 2D 4.2 [ 4.2 - 5.8 ] cm AV Peak Erick 1.4 [ 100.0 - 170.0 ] cm/se c LVIDs 2D 2.8 [ 2.5 - 4.0 ] cm AV Peak PG 8.0 [ 2.0 - 9.0 ] mmHg LVPWd 2D 0.9 [ 0.6 - 1.0 ] cm LVOT Peak Erick 0.9 [ 70.0 - 110.0 ] cm/sec IVSd 2D 1.1 [ 0.6 - 1.0 ] cm LVOT Peak PG 3.0 [ 2.0 - 6.0 ] mmHg AoR Diam 2D 3.7 [ 2.6 - 3.4 ] cm MV E Peak Erick 0.7 [ 60.0 - 130.0 ] cm/sec EDV 2D 77.7 [ 62.0 - 150.0 ] ml MV A Peak Erick 0.8 [ 100.0 - 120.0 ] cm/se c ESV 2D 28.3 [ 21.0 - 61.0 ] ml MV E/A 0.9 [ 0.8 - 1.5 ] ratio EF 2D 63.6 [ 52.0 - 72.0 ] percent MV PHT 63.0 [ 20.0 - 100.0 ] msec LA Dimen 2D 3.3 [ 3.0 - 4.0 ] cm MV Decel Time 214 [ 104 - 258 ] msec MV Decel [place] 3 Lat E` Erick 0.1 [ 10.0 - 15.0 ] cm/sec Lateral E/E` 7.4 [ 1.0 - 2.0 ] ratio Med E` Erick 0.1 cm/sec MV E/A 0.9 [ 0.8 - 1.5 ] ratio MVA PHT 3.5 [ 2.0 - 4.0 ] cm2 TR Peak Erick 2.2 [ 100.0 - 280.0 ] cm/se c TR Peak PG 20.0 mmHg PV Peak Erick 1.1 [ 40.0 - 80.0 ] cm/sec PV Peak PG 5.0 mmHg RVSP 23.0 [ 10.0 - 36.0 ] mmHg RA Pressure 3.0 mmHg Findings: Left Ventricle: Normal left ventricular systolic function. Normal left ventricular cavity size. Mild concentric left ventricular hypertrophy. Ejection fraction is visually estimated at 60 %. Right Ventricle: Normal right ventricular size. Normal right ventricular systolic function. Left Atrium: The left atrium is normal in size. Right Atrium: The right atrium is normal in size. Mitral Valve: Mitral valve leaflets appear mildly thickened. Mild mitral annular calcification. Trace mitral regurgitation. Aortic Valve: Aortic cusps appear moderately calcified. Non coronary cusp appears severely calcified. Trace to mild aortic valve regurgitation. Tricuspid Valve: Normal appearance of the tricuspid valve. Estimated peak PA systolic pressure 23 mmHg. There is trace tricuspid regurgitation. Pulmonic Valve: Normal pulmonic valve appearance. Pericardium: Trivial pericardial effusion. Pleural effusion seen. Aorta: Normal aortic root. IVC: Normal size and normal respiratory collapse consistent with normal right atrial pressure. Conclusions: Normal left ventricular systolic function. Normal left ventricular cavity size. Mild concentric left ventricular hypertrophy. Ejection fraction is visually estimated at 60 %. Mitral valve leaflets appear mildly thickened. Mild mitral annular calcification. Trace mitral regurgitation. Aortic cusps appear moderately calcified. Non coronary cusp appears severely calcified, clinical correlation is required. Trace to mild aortic valve regurgitation. Normal appearance of the tricuspid valve. Estimated peak PA systolic pressure 23 mmHg. There is trace tricuspid regurgitation. Electronically Signed By: Matteo Walker 2018-10-04 08:05:06 [facility]
[2018-10-04] MEDS: METOPROLOL (XL) 25 MG TAB PO SCH ×2 (08:42→21:00)
[2018-10-04] MEDS: ENOXAPARIN 30 MG/0.3 ML SYG SC SCH (08:51)
[2018-10-04 13:44] VITALS: BP 104/73; PULSE 110; RESP 16
--- NOTE | 2018-10-04 14:25 | PN ---
Date/Time of Note Date/Time of Note DATE: 10/04/18 TIME: 14:24 Assessment/Plan VTE Prophylaxis Risk score (from Ns)>0 risk: 6 SCD applied (from Ns): Yes Pharmacological prophylaxis: LMWH Lines/Catheters IV Catheter Type (from [facility]): Peripheral IV Urinary Cath still in place: No Assessment/Plan Assessment/Plan 1. Community acquired pneumonia, improving on rocephin and zithromax 2. Microcytic anemia, iron deficiency, iron supplement, outpatient work up(endoscopy) 3. DVT prophylaxis: lovenox Result Diagram: 10/04/18 0610 10/04/18 0610 Results 24hrs Laboratory Tests Test 10/04/18 06:10 White Blood Count 13.4 H Red Blood Count 5.24 Hemoglobin 10.6 L Hematocrit 35.3 L Mean Corpuscular Volume 67.4 L Mean Corpuscular Hemoglobin 20.2 L Mean Corpuscular Hemoglobin Concent 30.0 L Red Cell Distribution Width 23.2 H Platelet Count 560 H Mean Platelet Volume 10.7 H Immature Granulocytes % 4.100 H Neutrophils % 75.7 Lymphocytes % 8.8 L Monocytes % 7.5 Eosinophils % 3.5 Basophils % 0.4 Nucleated Red Blood Cells % 0.0 Immature Granulocytes # 0.550 H Neutrophils # 10.2 H Lymphocytes # 1.2 Monocytes # 1.0 H Eosinophils # 0.5 Basophils # 0.1 Nucleated Red Blood Cells # 0.0 Sodium Level 135 Potassium Level 4.2 Chloride Level 97 Carbon Dioxide Level 27 Anion Gap 11 Blood Urea Nitrogen 15 Creatinine 0.74 Est Glomerular Filtrat Rate mL/min > 60 Glucose Level 109 Calcium Level 8.7 Subjective 24 Hr Interval Summary Free Text/Dictation less shortness of breath Exam/Review of Systems Exam Vitals Vital Signs Date Temp Pulse Resp B/P (MAP) Pulse Ox O2 O2 Flow FiO2 Time Delivery Rate 10/04/18 98.5 110 16 104/73 99 Room Air 13:44 (83) 10/03/18 21 14:07 Intake and Output 10/03/18 10/03/18 10/04/18 1515:00 23:00 07:00 IntakeIntake Total 900 ml 1240 ml 500 ml OutputOutput Total 200 ml 150 ml 1000 ml BalanceBalance 700 ml 1090 ml -500 ml Constitutional: alert, oriented, well developed Psych: no complaints, nl mood/affect Head: normocephalic, atraumatic Eyes: nl conjunctiva, EOMI, nl lids, PERRL ENMT: nl external ears & nose, nl lips & teeth, nl nasal mucosa & septum Neck: supple, non-tender Respiratory: crackles/rales, wheezing Cardiovascular: regular rate and rhythm; No nl pulses, No bruits, No diastolic murmur, No edema, No gallop, No irregular rhythm, No jugular venous distention (JVD), No murmurs/extra sounds, No rub, No systolic murmur, No S3, No S4, No other Gastrointestinal: soft, nl liver, spleen, non-tender Musculoskeletal: nl extremities to inspection Extremities: normal pulses; No calf tenderness, No cyanosis, No clubbing, No edema, No pitting pedal edema, No palpable cord, No tenderness, No other Neurological: DIRECTOR INTERNAL AUDIT II-XII intact, nl mental status, nl speech, nl strength Results Results 24hrs Laboratory Tests Test 10/04/18 06:10 White Blood Count 13.4 H Red Blood Count 5.24 Hemoglobin 10.6 L Hematocrit 35.3 L Mean Corpuscular Volume 67.4 L Mean Corpuscular Hemoglobin 20.2 L Mean Corpuscular Hemoglobin Concent 30.0 L Red Cell Distribution Width 23.2 H Platelet Count 560 H Mean Platelet Volume 10.7 H Immature Granulocytes % 4.100 H Neutrophils % 75.7 Lymphocytes % 8.8 L Monocytes % 7.5 Eosinophils % 3.5 Basophils % 0.4 Nucleated Red Blood Cells % 0.0 Immature Granulocytes # 0.550 H Neutrophils # 10.2 H Lymphocytes # 1.2 Monocytes # 1.0 H Eosinophils # 0.5 Basophils # 0.1 Nucleated Red Blood Cells # 0.0 Sodium Level 135 Potassium Level 4.2 Chloride Level 97 Carbon Dioxide Level 27 Anion Gap 11 Blood Urea Nitrogen 15 Creatinine 0.74 Est Glomerular Filtrat Rate mL/min > 60 Glucose Level 109 Calcium Level 8.7 Medications Medication Current Medications IV Flush (NS 3 ml) 3 ml PER PROTOCOL IV ; Start 09/30/18 at 23:00 Ondansetron HCl (Zofran Inj) 4 mg Q6H PRN IV NAUSEA/VOMITING; Start 09/30/18 at 23:00 Acetaminophen (Tylenol Tab) 650 mg Q6H PRN PO .PAIN 1-3 OR TEMP Last administered on 10/03/18 02:13; Admin Dose 650 MG; Start 09/30/18 at 23:00 Acetaminophen/ Hydrocodone Bitart ([place] (5/325)) 1 tab Q6H PRN PO .PAIN 4-6 Last administered on 10/04/18 09:27; Admin Dose 1 TAB; Start 09/30/18 at 23:00 Morphine Sulfate (morphine) 2 mg Q4H PRN IV .PAIN 7-10; Start 09/30/18 at 23:00 Guaifenesin/ Codeine Phosphate (Robitussin Ac Liquid Cup) 5 ml Q4H PRN PO cough Last administered on 10/04/18 09:27; Admin Dose 5 ML; Start 10/01/18 at 01:30 Albuterol/ Ipratropium (Duoneb) 3 ml Q2H RESP THERAPY PRN HHN shortness of breath Last administered on 10/03/18 14:06; Admin Dose 3 ML; Start 10/01/18 at 01:30 Ceftriaxone Sodium 50 ml @ 100 mls/hr Q24H IVPB Last administered on 10/03/18 15:48; Admin Dose 100 MLS/HR; Start 10/03/18 at 15:00 Azithromycin 250 mg/Sodium Chloride 250 ml @ 250 mls/hr Q24H IVPB Last administered on 10/03/18 16:30; Admin Dose 250 MLS/HR; Start 10/03/18 at 16:00 Metoprolol Succinate (Toprol Xl) 25 mg BID PO Last administered on 10/04/18 08:42; Admin Dose 25 MG; Start 10/03/18 at 21:00 Enoxaparin Sodium (Lovenox) 30 mg DAILY SC Last administered on 10/04/18 08:51; Admin Dose 30 MG; Start 10/04/18 at 09:00 DEYSI RODRIGUES MD Oct 04, 2018 14:25
[2018-10-04] MEDS: IPRATROPIUM (NEB) 0.5 MG/2.5 ML AMP HHN SCH ×2 (15:20→21:25)
[2018-10-04] MEDS: CEFTRIAXONE 1 GM/50 ML (PMX) 50 ML IVPB SCH (15:42)
[2018-10-04] MEDS ORDERED: morphine LIQ (10 MG/5 ML) CUP PO PRN (16:00)
[2018-10-04] MEDS: AZITHROMYCIN 250 MG in SOD CHLORIDE 0.9% 250 ML IVPB SCH (18:12)
[2018-10-04 20:25] VITALS: BP 116/80; PULSE 102; RESP 18
[2018-10-04] MEDS: ACETAMINOPHEN 325 MG TAB PO PRN (21:20)
[2018-10-05] MEDS: HYDROCODONE/APAP (5/325) TAB PO PRN ×4 (00:39→19:56)
[2018-10-05] MEDS: IPRATROPIUM (NEB) 0.5 MG/2.5 ML AMP HHN SCH ×4 (01:10→20:38)
[2018-10-05 01:36] VITALS: BP 102/67; PULSE 103; RESP 18
[2018-10-05 07:42] VITALS: BP 110/78; PULSE 93; RESP 18
[2018-10-05] MEDS: METOPROLOL (XL) 25 MG TAB PO SCH ×2 (08:49→19:56)
[2018-10-05] MEDS: ENOXAPARIN 30 MG/0.3 ML SYG SC SCH (08:51)
[2018-10-05 13:31] VITALS: BP 113/78; PULSE 96; RESP 18
[2018-10-05] MEDS: CEFTRIAXONE 1 GM/50 ML (PMX) 50 ML IVPB SCH (14:40)
--- NOTE | 2018-10-05 16:19 | PN ---
Date/Time of Note Date/Time of Note DATE: 10/05/18 TIME: 16:18 Assessment/Plan VTE Prophylaxis Risk score (from Ns)>0 risk: 3 SCD applied (from Ns): Yes Pharmacological prophylaxis: LMWH Lines/Catheters IV [facility] (from [facility] Saline Lock Urinary Cath still in place: No Assessment/Plan Assessment/Plan 1. Community acquired pneumonia, improving on rocephin and zithromax 2. Microcytic anemia, iron deficiency, iron supplement, outpatient work up(endoscopy) 3. DVT prophylaxis: lovenox 4. Plan to discharge tomorrow Result Diagram: 10/04/18 0610 10/04/18 0610 Subjective 24 Hr Interval Summary Free Text/Dictation less cough and shortness of breath Exam/Review of Systems Exam Vitals Vital Signs Date Temp Pulse Resp B/P (MAP) Pulse Ox O2 O2 Flow FiO2 Time Delivery Rate 10/05/18 96 22 98 21 14:42 10/05/18 99.2 113/78 Room Air 13:31 (90) Intake and Output 10/04/18 10/04/18 10/05/18 1414:59 22:59 06:59 IntakeIntake Total 360 ml 240 ml OutputOutput Total 100 ml 125 ml 500 ml BalanceBalance 260 ml 115 ml -500 ml Constitutional: alert, oriented, well developed Head: normocephalic, atraumatic Eyes: nl conjunctiva, EOMI, nl lids ENMT: nl external ears & nose, nl lips & teeth, nl nasal mucosa & septum Neck: supple, non-tender Respiratory: clear to auscultation, normal air movement; No congested cough, No crackles/rales, No diminished breath sounds, No intercostal retraction, No labored breathing, No respirations, No tactile fremitus, No wheezing, No other Cardiovascular: regular rate and rhythm, nl pulses; No bruits, No diastolic murmur, No edema, No gallop, No irregular rhythm, No jugular venous distention (JVD), No murmurs/extra sounds, No rub, No systolic murmur, No S3, No S4, No other Gastrointestinal: soft, nl liver, spleen, non-tender; No ascites, No bowel sounds, No distended, No firm, No hepatomegaly, No mass, No rebound or guarding, No splenomegaly, No surgical scars, No tender, No other Musculoskeletal: nl extremities to inspection Extremities: normal pulses; No calf tenderness, No cyanosis, No clubbing, No edema, No pitting pedal edema, No palpable cord, No tenderness, No other Neurological: BIOSTATISTICS DIRECTOR II-XII intact, nl mental status, nl speech, nl strength Medications Medication Current Medications IV Flush (NS 3 ml) 3 ml PER PROTOCOL IV ; Start 09/30/18 at 23:00 Ondansetron HCl (Zofran Inj) 4 mg Q6H PRN IV NAUSEA/VOMITING; Start 09/30/18 at 23:00 Acetaminophen (Tylenol Tab) 650 mg Q6H PRN PO .PAIN 1-3 OR TEMP Last administered on 10/03/18 02:13; Admin Dose 650 MG; Start 09/30/18 at 23:00 Acetaminophen/ Hydrocodone Bitart ([place] (5/325)) 1 tab Q6H PRN PO .PAIN 4-6 Last administered on 10/05/18 13:26; Admin Dose 1 TAB; Start 09/30/18 at 23:00 Guaifenesin/ Codeine Phosphate (Robitussin Ac Liquid Cup) 5 ml Q4H PRN PO cough Last administered on 10/04/18 09:27; Admin Dose 5 ML; Start 10/01/18 at 01:30 Albuterol/ Ipratropium (Duoneb) 3 ml Q2H RESP THERAPY PRN HHN shortness of breath Last administered on 10/03/18 14:06; Admin Dose 3 ML; Start 10/01/18 at 01:30 Ceftriaxone Sodium 50 ml @ 100 mls/hr Q24H IVPB Last administered on 10/05/18 14:40; Admin Dose 100 MLS/HR; Start 10/03/18 at 15:00 Azithromycin 250 mg/Sodium Chloride 250 ml @ 250 mls/hr Q24H IVPB Last admini stered on 10/04/18 18:12; Admin Dose 250 MLS/HR; Start 10/03/18 at 16:00 Metoprolol Succinate (Toprol Xl) 25 mg BID PO Last administered on 10/05/18 08:49; Admin Dose 25 MG; Start 10/03/18 at 21:00 Enoxaparin Sodium (Lovenox) 30 mg DAILY SC Last administered on 10/05/18at 08:51; Admin Dose 30 MG; Start 10/04/18 at 09:00 Ipratropium Goldvein (Atrovent 0.02% ([place])) 0.5 mg Q6H RESP THERAPY HHN Last administered on 10/05/18at 14:42; Admin Dose 0.5 MG; Start 10/04/18 at 14:30 Morphine Sulfate (morphine) 6 mg Q4H PRN PO SEVERE PAIN LEVEL 7-10; Start 10/04/18 at 16:00 DEYSI RODRIGUES MD Oct 05, 2018 16:19
[2018-10-05] MEDS: AZITHROMYCIN 250 MG in SOD CHLORIDE 0.9% 250 ML IVPB SCH (16:33)
[2018-10-05 20:00] VITALS: BP 106/69; PULSE 106; RESP 19
[2018-10-06] MEDS: IPRATROPIUM (NEB) 0.5 MG/2.5 ML AMP HHN SCH ×4 (01:06→19:28)
[2018-10-06 02:00] VITALS: BP 97/66; PULSE 103; RESP 18
[2018-10-06 07:34] VITALS: BP 107/71; PULSE 105; RESP 18
[2018-10-06] MEDS: HYDROCODONE/APAP (5/325) TAB PO PRN ×2 (09:10→21:24)
[2018-10-06] MEDS: METOPROLOL (XL) 25 MG TAB PO SCH ×2 (09:10→21:00)
[2018-10-06] MEDS: GUAIFENESIN/CODEINE 5ML CUP PO PRN (09:11)
[2018-10-06] MEDS: ENOXAPARIN 30 MG/0.3 ML SYG SC SCH (09:14)
--- NOTE | 2018-10-06 13:40 | PN ---
Date/Time of Note Date/Time of Note DATE: 10/06/18 TIME: 13:39 Assessment/Plan VTE Prophylaxis Risk score (from Ns)>0 risk: 3 SCD applied (from Ns): Yes Pharmacological prophylaxis: LMWH Lines/Catheters IV [facility]from [facility] [place] [facility] Urinary Cath still in place: No Assessment/Plan Assessment/Plan 1. Community acquired pneumonia, improving on rocephin and zithromax 2. Microcytic anemia, iron deficiency, iron supplement, outpatient work up(endoscopy) 3. DVT prophylaxis: lovenox 4. 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 Result Diagram: 10/06/18 0451 10/06/18 0451 Results 24hrs Laboratory Tests Test 10/06/18 04:51 White Blood Count 12.4 H Red Blood Count 5.14 Hemoglobin 10.2 L Hematocrit 33.8 L Mean Corpuscular Volume 65.8 L Mean Corpuscular Hemoglobin 19.8 L Mean Corpuscular Hemoglobin Concent 30.2 L Red Cell Distribution Width 23.3 H Platelet Count 521 H Mean Platelet Volume 10.4 Immature Granulocytes % 1.900 H Neutrophils % 73.3 Segmented Neutrophils % (Manual) 78 H Lymphocytes % 13.3 L Lymphocytes % (Manual) 8 L Reactive Lymphocytes % (Manual) 3 H Monocytes % 8.2 Monocytes % (Manual) 8 Eosinophils % 3.1 Eosinophils % (Manual) 3 Basophils % 0.2 Nucleated Red Blood Cells % 0.0 Immature Granulocytes # 0.240 H Neutrophils # 9.1 H Lymphocytes (Manual) 0.9 Lymphocytes # 1.7 Reactive Lymphocytes # 0.3 H Monocytes # 1.0 H Monocytes # (Manual) 0.9 Eosinophils # 0.4 Basophils # 0.0 Nucleated Red Blood Cells # 0.0 Platelet Estimate INCREASED Polychromasia 3+ Hypochromasia 3+ Poikilocytosis 2+ Anisocytosis 1+ Microcytosis 1+ Spherocytes 1+ Target Cells 1+ Sodium Level 133 L Potassium Level 4.3 Chloride Level 97 Carbon Dioxide Level 29 Anion Gap 7 Blood Urea Nitrogen 14 Creatinine 0.61 Est Glomerular Filtrat Rate mL/min > 60 Glucose Level 109 Calcium Level 9.0 Subjective 24 Hr Interval Summary Free Text/Dictation still cough with shortness of breath, requests for SNF Exam/Review of Systems Exam Vitals Vital Signs Date Temp Pulse Resp B/P (MAP) Pulse Ox O2 O2 Flow FiO2 Time Delivery Rate 2/21/19 93 18 95 21 08:41 10/06/18 99.1 107/71 Room Air 07:34 (83) Intake and Output 10/05/18 10/05/18 10/06/18 1515:00 23:00 07:00 IntakeIntake Total 360 ml 600 ml 120 ml OutputOutput Total 200 ml 600 ml BalanceBalance 360 ml 400 ml -480 ml Constitutional: alert, oriented, well developed Psych: no complaints, nl mood/affect Head: normocephalic, atraumatic Eyes: nl conjunctiva, EOMI, nl lids, PERRL ENMT: nl external ears & nose, nl lips & teeth, nl nasal mucosa & septum Neck: supple, non-tender Respiratory: clear to auscultation, normal air movement; No congested cough, No crackles/rales, No diminished breath sounds, No intercostal retraction, No labored breathing, No respirations, No tactile fremitus, No wheezing, No other Cardiovascular: regular rate and rhythm, nl pulses; No bruits, No diastolic murmur, No edema, No gallop, No irregular rhythm, No jugular venous distention (JVD), No murmurs/extra sounds, No rub, No systolic murmur, No S3, No S4, No other Gastrointestinal: soft, nl liver, spleen, non-tender Musculoskeletal: nl extremities to inspection, nl gait and stance; No joint tenderness, No muscle tone, No muscle weakness, No range of motion, No spine non-tender, No swelling, No other Extremities: normal pulses; No calf tenderness, No cyanosis, No clubbing, No edema, No pitting pedal edema, No palpable cord, No tenderness, No other Neurological: [employer]IT [employer] OIL WELL II-XII intact, nl mental status, nl speech, nl strength Results Results 24hrs Laboratory Tests Test 10/06/18 04:51 White Blood Count 12.4 H Red Blood Count 5.14 Hemoglobin 10.2 L Hematocrit 33.8 L Mean Corpuscular Volume 65.8 L Mean Corpuscular Hemoglobin 19.8 L Mean Corpuscular Hemoglobin Concent 30.2 L Red Cell Distribution Width 23.3 H Platelet Count 521 H Mean Platelet Volume 10.4 Immature Granulocytes % 1.900 H Neutrophils % 73.3 Segmented Neutrophils % (Manual) 78 H Lymphocytes % 13.3 L Lymphocytes % (Manual) 8 L Reactive Lymphocytes % (Manual) 3 H Monocytes % 8.2 Monocytes % (Manual) 8 Eosinophils % 3.1 Eosinophils % (Manual) 3 Basophils % 0.2 Nucleated Red Blood Cells % 0.0 Immature Granulocytes # 0.240 H Neutrophils # 9.1 H Lymphocytes (Manual) 0.9 Lymphocytes # 1.7 Reactive Lymphocytes # 0.3 H Monocytes # 1.0 H Monocytes # (Manual) 0.9 Eosinophils # 0.4 Basophils # 0.0 Nucleated Red Blood Cells # 0.0 Platelet Estimate INCREASED Polychromasia 3+ Hypochromasia 3+ Poikilocytosis 2+ Anisocytosis 1+ Microcytosis 1+ Spherocytes 1+ Target Cells 1+ Sodium Level 133 L Potassium Level 4.3 Chloride Level 97 Carbon Dioxide Level 29 Anion Gap 7 Blood Urea Nitrogen 14 Creatinine 0.61 Est Glomerular Filtrat Rate mL/min > 60 Glucose Level 109 Calcium Level 9.0 Medications Medication Current Medications IV Flush (NS 3 ml) 3 ml PER PROTOCOL IV ; Start 09/30/18 at 23:00 Ondansetron HCl (Zofran Inj) 4 mg Q6H PRN IV NAUSEA/VOMITING; Start 09/30/18 at 23:00 Acetaminophen (Tylenol Tab) 650 mg Q6H PRN PO .PAIN 1-3 OR TEMP Last administered on 10/03/18 02:13; Admin Dose 650 MG; Start 09/30/18 at 23:00 Acetaminophen/ Hydrocodone Bitart ([place] (5/325)) 1 tab Q6H PRN PO .PAIN 4-6 Last administered on 10/06/18 09:10; Admin Dose 1 TAB; Start 09/30/18 at 23:00 Guaifenesin/ Codeine Phosphate (Robitussin Ac Liquid Cup) 5 ml Q4H PRN PO cough Last administered on 10/06/18 09:11; Admin Dose 5 ML; Start 10/01/18 at 01:30 Albuterol/ Ipratropium (Duoneb) 3 ml Q2H RESP THERAPY PRN HHN shortness of breath Last administered on 10/03/18 14:06; Admin Dose 3 ML; Start 10/01/18 at 01:30 Ceftriaxone Sodium 50 ml @ 100 mls/hr Q24H IVPB Last administered on 10/05/18 14:40; Admin Dose 100 MLS/HR; Start 10/03/18 at 15:00 Azithromycin 250 mg/Sodium Chloride 250 ml @ 250 mls/hr Q24H IVPB Last administered on 10/05/18 16:33; Admin Dose 250 MLS/HR; Start 10/03/18 at 16:00 Metoprolol Succinate (Toprol Xl) 25 mg BID PO Last administered on 10/06/18 09:10; Admin Dose 25 MG; Start 10/03/18 at 21:00 Enoxaparin Sodium (Lovenox) 30 mg DAILY SC Last administered on 10/06/18 09:14; Admin Dose 30 MG; Start 10/04/18 at 09:00 Ipratropium [place] (Atrovent 0.02% (Neb)) 0.5 mg Q6H RESP THERAPY HHN Last administered on 10/06/18 08:30; Admin Dose 0.5 MG; Start 10/04/18 at 14:30 Morphine Sulfate (morphine) 6 mg Q4H PRN PO SEVERE PAIN LEVEL 7-10; Start 10/04/18 at 16:00 DEYSI RODRIGUES MD Oct 06, 2018 13:40
[2018-10-06] MEDS: CEFTRIAXONE 1 GM/50 ML (PMX) 50 ML IVPB SCH (15:40)
[2018-10-06 15:46] VITALS: BP 112/77; PULSE 111; RESP 18
[2018-10-06] MEDS: AZITHROMYCIN 250 MG in SOD CHLORIDE 0.9% 250 ML IVPB SCH (16:22)
[2018-10-06 20:00] VITALS: BP 103/71; PULSE 111; RESP 19
[2018-10-07] MEDS: IPRATROPIUM (NEB) 0.5 MG/2.5 ML AMP HHN SCH ×3 (01:50→14:13)
[2018-10-07 02:00] VITALS: BP 101/75; PULSE 93; RESP 18
[2018-10-07 07:22] VITALS: BP 113/82; PULSE 120; RESP 18
[2018-10-07] MEDS: METOPROLOL (XL) 25 MG TAB PO SCH (08:27)
[2018-10-07] MEDS: HYDROCODONE/APAP (5/325) TAB PO PRN ×2 (08:27→14:45)
[2018-10-07] MEDS: ENOXAPARIN 30 MG/0.3 ML SYG SC SCH (08:39)
--- NOTE | 2018-10-07 11:41 | PDOCDIS ---
Discharge Instructions DIAGNOSIS Discharge Diagnosis Pneumonia Anemia CONDITION [id number] Patient Condition: [id number] Stable FOLLOW UP/APPOINTMENTS Follow-up Plan Make an appointment to see a primary care doctor in the next couple weeks. If you do not have one, you can call Dr David Green at You should also make an appointment with a blood doctor (machine rebuilder) to discuss your anemia. You can make an appointment with Dr Margarita Khalil at Return to the emergency room if you have any trouble breathing or any other concerning issues AUGUSTINA ACMPBELL MD Oct 07, 2018 11:41
--- NOTE | 2018-10-07 13:18 | DS ---
Date/Time of Note Date/Time of Note DATE: 10/07/18 TIME: 13:16 Discharge Summary Admission/Discharge Info Admit Date/Time Sep 30, 2018 at 20:40 Discharge Date/Time Discharge Diagnosis Pneumonia Anemia Patient Condition: Stable Hospital Course The patient was treated with antibiotics for pneumonia as suggested by his X ray. He was given a dose of lasix for possible pulmonary edema. However, TTE showed structurally normal heart with normal IVC/RA pressure so CHF was exclude. His symptoms improved and he requested to be discharged to home. I advised him to follow up with a registered nurse hh case manager for his anemia and his primary care doctor for his pulmonary symptoms. He is ambulating aroudn the unit without difficulty and does not seem to have issues care for himself so he was discharged home per his request. Home Meds No Active Prescriptions or Reported Meds Follow-up Plan Make an appointment to see a primary care doctor in the next couple weeks. If you do not have one, you can call Dr David Green at You should also make an appointment with a blood doctor (registered nurse hh case manager) to discuss your anemia. You can make an appointment with Dr Margarita Khalil at Return to the emergency room if you have any trouble breathing or any other concerning issues Primary Care Provider Care Physician AUGUSTINA Swift MD Oct 07, 2018 13:18
[2018-10-07] MEDS: CEFTRIAXONE 1 GM/50 ML (PMX) 50 ML IVPB SCH (14:45)
== END 2018-10-07 16:20 | disposition home or self-care (01) | DRG 194 ==
LOC: E/R 18:46 → 2NE 20:40
PROVIDERS: ADMIT Internal Medicine; ATTEND Internal Medicine
DX: J18.9 Pneumonia, unspecified organism (principal); E87.2 Acidosis; D50.9 Iron deficiency anemia, unspecified; Y95 Nosocomial condition; Z87.891 Personal history of nicotine dependence
CPT/HCPCS: 36415; 71045; 80048; 80053; 82728; 83540; 83605; 83735; 83880; 84443; 84484; 85025; 85610; 85730; 86803; 87040; 87340; 87400; 93005; 93306; 94640; 94664; J0456; J0696; J1650; J2543; J7040; J7050

== ENCOUNTER → 2019-01-10 | Outpatient (CLI) | payer MEDICARE | END | disposition home or self-care (01) | LOC: RAD 11:23 | PROVIDERS: ATTEND Internal Medicine | DX: J90 Pleural effusion, not elsewhere classified (principal); I70.0 Atherosclerosis of aorta; R05 Cough | CPT/HCPCS: 71046 ==